=== PATIENT | female | born 1995 | race Caucasian/White ===

== ENCOUNTER 2018-01-08 03:06 | Emergency (ER) | payer BC, SELFPAY ==
[2018-01-08] MEDS ORDERED: Adacel (T-DAP) 0.5 ML VIAL ONE (03:30)
--- NOTE | 2018-01-08 08:30 | RAD ---
LEFT KNEE 4 VIEWS: HISTORY: Laceration. Injury. COMPARISON: None. FINDINGS: There is a large posterior soft tissue laceration. No acute fracture or malalignment. No radiopaque foreign object is appreciated. IMPRESSION: Soft tissue laceration posteriorly. No acute osseous abnormality. POS: [facility]
[2018-01-08] MEDS ORDERED: Bacitracin Zinc 1 Packet ONE (09:16)
== END 2018-01-08 09:31 | disposition home or self-care (01) ==
LOC: ERS 03:06
DX: S81.812A Laceration without foreign body, left lower leg, initial encounter (principal); Z71.6 Tobacco abuse counseling; W25.XXXA Contact with sharp glass, initial encounter
CPT/HCPCS: 12002; 90471; 90715; 99406